=== PATIENT | female | born 2000 | race Hispanic/Latino ===

== ENCOUNTER 2025-03-24 11:29 | Observation (INO) | payer SELFPAY ==
--- NOTE | ~2025-03-24 | US_ITS ---
Limited Pelvic ultrasound. Clinical History: Evaluate cervical length, BUZZ, and placenta position Technique: Realtime transabdominal scanning of the pelvis was performed. Color flow Doppler and Doppl er spectral analysis were performed. Findings: Gravid uterus noted. Placenta is posteriorly located. No distinct evidence of placenta prev ia. Placental edge measures 3.4 cm from the edge of the cervix. heart rate is 136 bpm. Amniotic fluid index is 16.2. Cervix is closed, measuring 4.1 cm in length. There is no evidence of free fluid in the cul de sac. Impression: Live intrauterine gestation, as above. No evidence for placenta previa. Amniotic fluid index and cervical length, as detailed above. Reviewed, dictated and finalized at location M. Impression: Live intrauterine gestation, as above. No evidence for placenta previa. Amniotic fluid index and cervical length, as detailed above.
--- NOTE | 2025-03-24 11:20 | PC.NURSE ---
OB nurse, Erna, notified immediately of pt. arrival. Pt. is ivorian speaking. Per OB nurse, ok for this RN to put in triage compliant d/t language barrier. OB nurse aware pt. will require a marketing research analyst. Pt. taken to OB via WC.
--- NOTE | 2025-03-24 11:45 | OBADM ---
This patient, Emmy Crews, admitted to the OB room [facility] for observation. Patient/family oriented to hospital policies and general routines including ID bracelet, bed and alarms, visiting hours, pain management, procedures, bathroom and other care routines, personal items, smoking policy, room service/diet, and visiting hours. Patient/Family are encouraged to report perceived risks to care and to ask questions if they do not understand what they are told or what they should do.
[2025-03-24 12:39] LABS: Add Urine Microscopic? YES; Appearance Urine Cloudy (Clear); Bacteria Urine 2+ /hpf; Bilirubin Urine Negative (Negative); Blood Urine Negative (Negative); Color Urine Yellow (Yellow); Glucose Urine UA Negative (Negative); Ketones Urine Negative (Negative); Leukocyte Esterase Ur 2+ LEU/UL (Negative); Need Manual Microscopic Reviewed; Nitrate Urine Negative (Negative); Non Pathogenic Casts 0-2; Protein Urine Negative (Negative); RBC Urine 0-2 /hpf (0-2); Specific Grav Ur 1.014 (1.001-1.035); Squamous Epithelial Cell Urine Many /hpf (Few); Urobilinogen Urine 0.2 mg/dL (<2.0); pH Urine 7.5 (5.0-9.0)
--- NOTE | 2025-03-25 11:47 | P.PNOB_ITS ---
OB - Triage/Final Diagnosis Visit Information Comments/Additional reasons for admission: I have assessed the risk for this patient, Emmy Crews, and determined that she would benefit from observation care. Evaluation Laboratory results: Laboratory Tests 03/24/25 12:11 Urine Color Yellow Urine Appearance Cloudy H Urine pH 7.5 Ur Specific [place] 1.014 Urine Protein Negative Urine Glucose (UA) Negative Urine Ketones Negative Ur Blood (Man) Negative Urine Nitrate Negative Urine Bilirubin Negative Urine Urobilinogen 0.2 Ur Leukocyte Esterase 2+ H Add Ur Microanalysis Reviewed Urine RBC 0-2 Urine WBC 6-10 H Ur Squamous Epith Cells Many H Urine Bacteria 2+ H Urine Casts 0-2 Final Diagnosis (1) Abdominal pain affecting : Code(s): O26.899 - Other specified related conditions, unspecified trimester; R10.9 - Unspecified abdominal pain Status: Acute
== END 2025-03-24 13:40 | disposition home or self-care (01) ==
PROVIDERS: Admitting Provider Obstetrics & Gynecology; Visit Provider Obstetrics & Gynecology
DX: O26.892 Other specified pregnancy related conditions, second trimester (principal); R10.9 Unspecified abdominal pain; Z3A.27 27 weeks gestation of pregnancy
CPT/HCPCS: 76815; 81001; 87086; G0378; G0379

== ENCOUNTER 2025-06-22 13:05 | Observation (INO) | payer OTHER, SELFPAY ==
[2025-06-22] VITALS (18 sets, daily range): BP systolic 98–111; BP diastolic 48–68; PULSE 71–92; RESP 18; TEMP 36.7; O2SAT 96–100
--- NOTE | 2025-07-14 15:39 | PM.OBTRLD ---
OB - Triage/Final Diagnosis Visit Information Comments/Additional reasons for admission: I have assessed the risk for this patient, Emmy Moseley Chachristi Esquedaman, and determined that she would benefit from observation care. Final Diagnosis (1) False labor: Code(s): O47.9 - False labor, unspecified Status: Acute
== END 2025-06-22 14:49 | disposition home or self-care (01) ==
PROVIDERS: Admitting Provider Obstetrics & Gynecology; Visit Provider Obstetrics & Gynecology
DX: O47.9 False labor, unspecified (principal)
CPT/HCPCS: G0378; G0379